=== PATIENT | female | born 1965 | race Caucasian/White ===

== ENCOUNTER 2023-11-15 01:07 | Emergency (ER) | payer MEDICAID ==
[~2023-11-15] VITALS: Ht 167.6 cm; Wt 97.5 kg
[2023-11-15 01:20] VITALS: BP 126/92; TEMP 98; O2SAT 97
[2023-11-15] MEDS ORDERED: ACETAMINOPHEN ES 500 MG TABLET ONE (02:49)
[2023-11-15] MEDS ORDERED: ACETAMINOPHEN ES 500 MG TABLET PO ONE (03:00)
== END 2023-11-15 05:21 | disposition left against medical advice (07) ==
LOC: ER 01:09
DX: S09.90XA Unspecified injury of head, initial encounter (principal); I10 Essential (primary) hypertension; E78.5 Hyperlipidemia, unspecified; E11.9 Type 2 diabetes mellitus without complications; V89.2XXA Person injured in unspecified motor-vehicle accident, traffic, initial encounter; Y93.89 Activity, other specified; Y92.89 Other specified places as the place of occurrence of the external cause; Y99.8 Other external cause status
CPT/HCPCS: 70450-TC; 72125-TC